=== PATIENT | female | born 1995 | race Caucasian/White ===

== ENCOUNTER 2017-05-07 01:18 | Emergency (ER) | payer BC ==
[~2017-05-07] VITALS: Ht 154.9 cm; Wt 50.0 kg
[2017-05-07] MEDS ORDERED: IBUP-1114 PO (01:47)
[2017-05-07 02:49] LABS: BASO # 0.1 K/mm3 (0.0-0.2); BASO % 0.6 % (0.0-1.0); EOS # 0.1 K/mm3 (0.0-0.50); EOS % 0.7 % (0.0-3.0); LARGE UNSTAINED CELL # 0.2 K/mm3 (0.0-0.4); LARGE UNSTAINED CELL % 2.1 % (0.0-4.0); LYMPH # 2.8 K/mm3 (1.5-6.5); LYMPH % 23.3 % (24.0-44.0); MEAN CORPUSCULAR HEMOGLOBIN 30.9 pg (27.0-33.0); MEAN CORPUSCULAR HGB CONC 34.4 g/dl (32.0-36.5); MEAN CORPUSCULAR VOLUME 89.6 fl (80.0-96.0); MONO # 0.7 K/mm3 (0.0-0.8); MONO % 5.9 % (0.0-5.0); NEUTROPHILS # 7.3 K/mm3 (1.8-7.7); NEUTROPHILS % 67.5 % (36.0-66.0); PLATELET COUNT, AUTOMATED 253 k/mm3 (150-450); RED CELL DISTRIBUTION WIDTH 12.6 % (11.5-14.5); WHITE BLOOD COUNT 10.9 K/mm3 (4.0-10.0)
[2017-05-07 03:04] LABS: CONTROL LINE HCG INT CTR LINE PRESENT
[2017-05-07 03:13] VITALS: BP 114/81
[2017-05-07 03:14] LABS: ANION GAP 8 MEQ/L (8-16); BLOOD UREA NITROGEN 18 MG/DL (7-18); CALCIUM LEVEL 9.1 MG/DL (8.5-10.1); CARBON DIOXIDE LEVEL 27 MEQ/L (21-32); CHLORIDE LEVEL 105 MEQ/L (98-107); CREATININE FOR GFR 0.82 MG/DL (0.55-1.02); GLOMERULAR FILTRATION RATE > 60.0 (>60); GLUCOSE, FASTING 83 MG/DL (70-105); SODIUM LEVEL 140 MEQ/L (136-145); THYROXINE (T4) 8.8 UG/DL (4.5-12.0)
--- NOTE | 2017-05-07 04:52 | REP ---
Clinical: Shortness of breath. Technique: PA and lateral. Findings: Subtle right middle lobe infiltrate/atelectasis cannot be excluded. Mediastinum and cardiac silhouette are normal. No further consolidation, effusion, or pneumothorax. Skeletal structures intact. Impression: Cannot exclude subtle right middle lobe atelectasis/infiltrate. Signed by Guicho Cardona MD 05/07/2017 04:43 A
--- NOTE | 2017-05-07 07:11 | ECGEPIP ---
Stationary ECG Study [facility] - ED Test Date: 2017-05-07 Pat Name: SG BUCKNER Department: Room: - Gender: F [employer] Man: catherine : 1995 Requested By: GUILLERMINA Kulkarni Order Number: [id number] Reading MD: Yinka Vee Measurements Intervals [place] Rate: 71 P: 38 [place]: 116 QRS: 86 QRSD: 78 T: 66 QT: 376 QTc: 410 Interpretive Statements SINUS RHYTHM WITH MARKED SINUS ARRHYTHMIA WITH SHORT [place] INTERVAL NO PRIORS Electronically Signed On 05-07-2017 7:10:58 EDT by Yinka Vee
--- NOTE | 2017-05-07 14:51 | ED PDOC ---
Post-Departure Follow-Up certitied letter sent to pt re formal read of cxr for fu . no pcp listed. Brandon Gonzalez MD May 07, 2017 14:51
== END 2017-05-07 05:13 | disposition home or self-care (01) ==
LOC: M ED 01:18
DX: R07.89 Other chest pain (principal); R55 Syncope and collapse

== ENCOUNTER → 2022-12-31 | Outpatient (CLI) | payer BC ==
[~2022-12-31] MED LIST: IBUP-1114 PO
== END ==
LOC: M WHC 08:32
PROVIDERS: ATTEND Specialist
DX: Z34.82 Encounter for supervision of other normal pregnancy, second trimester (principal); Z53.9 Procedure and treatment not carried out, unspecified reason

== ENCOUNTER → 2023-01-29 | Outpatient (CLI) | payer BC, OTHER | LOC: M PLALAB 14:36 | PROVIDERS: ATTEND Specialist | DX: Z34.82 Encounter for supervision of other normal pregnancy, second trimester (principal) ==

== ENCOUNTER → 2023-06-19 | Outpatient (REF) | payer BC | LOC: M PLALAB 08:25 | PROVIDERS: ATTEND Obstetrics & Gynecology | DX: Z34.80 Encounter for supervision of other normal pregnancy, unspecified trimester (principal) ==

== ENCOUNTER → 2023-06-26 | Outpatient (CLI) | payer BC, OTHER ==
[2023-06-26 13:58] LABS: HEMATOCRIT 41.1 % (36.0-47.0); HEMOGLOBIN 13.4 g/dl (12.0-15.5); MEAN CORPUSCULAR HEMOGLOBIN 28.6 pg (27.0-33.0); MEAN CORPUSCULAR HGB CONC 32.6 g/dl (32.0-36.5); MEAN CORPUSCULAR VOLUME 87.8 fl (80.0-96.0); PLATELET COUNT, AUTOMATED 149 10^3/uL (150-450); RED BLOOD COUNT 4.68 10^6/uL (4.00-5.40); WHITE BLOOD COUNT 11.3 10^3/uL (4.0-10.0)
[2023-06-26 14:27] LABS: URIC ACID 5.9 MG/DL (3.1-7.8)
[2023-06-26 14:28] LABS: LDH LACTATE DEHYDROGENASE 290 U/L (120-246)
[2023-06-26 14:29] LABS: ALT/SGPT 12 U/L (7.0-40); AST/SGOT 18 U/L (<34); BILIRUBIN,TOTAL 0.4 MG/DL (0.3-1.2); CREATININE FOR GFR 0.61 MG/DL (0.55-1.30); GLOMERULAR FILTRATION RATE > 60.0 (>60)
[2023-06-26 14:34] LABS: CREATININE,RANDOM URINE 18.9 MG/DL
[2023-06-26 14:35] LABS: TOTAL PROTEIN,RANDOM URINE < 6.0 MG/DL (0.0-14.0)
== END ==
LOC: M PLALAB 12:16
PROVIDERS: ATTEND Advanced Practice Midwife
DX: O16.3 Unspecified maternal hypertension, third trimester (principal); Z3A.00 Weeks of gestation of pregnancy not specified

== ENCOUNTER 2023-07-03 08:27 | Inpatient (IN) | payer BC, OTHER ==
[~2023-07-03] VITALS: Ht 154.9 cm; Wt 84.6 kg
[2023-07-03] VITALS (21 sets, daily range): BP systolic 119–166; BP diastolic 61–92; O2SAT 97–98
[2023-07-03] MEDS ORDERED: PROZ10CA7 PO (08:53)
[2023-07-03] MEDS ORDERED: MAAL10003 PO (08:53)
[2023-07-03] MEDS ORDERED: PREN1CHW4 PO (08:53)
[2023-07-03] MEDS ORDERED: ASPI81CH33 PO (08:53)
[2023-07-03] MEDS ORDERED: ACET-897 PO (08:53)
[2023-07-03] MEDS ORDERED: HOME MED LIST COMPLETE! XX SCH (08:55)
[2023-07-03 09:47] LABS: HEMATOCRIT 39.7 % (36.0-47.0); HEMOGLOBIN 13.1 g/dl (12.0-15.5); MEAN CORPUSCULAR HEMOGLOBIN 28.5 pg (27.0-33.0); MEAN CORPUSCULAR VOLUME 86.3 fl (80.0-96.0); PLATELET COUNT, AUTOMATED 144 10^3/uL (150-450)
[2023-07-03 10:15] LABS: URIC ACID 6.7 MG/DL (3.1-7.8)
[2023-07-03 10:16] LABS: LDH LACTATE DEHYDROGENASE 226 U/L (120-246)
[2023-07-03 10:17] LABS: ALT/SGPT 15 U/L (7.0-40); AST/SGOT 22 U/L (<34); BILIRUBIN,TOTAL 0.3 MG/DL (0.3-1.2); CREATININE FOR GFR 0.61 MG/DL (0.55-1.30); GLOMERULAR FILTRATION RATE > 60.0 (>60)
[2023-07-03 10:32] LABS: TOTAL PROTEIN,RANDOM URINE < 6.0 MG/DL (0.0-14.0)
[2023-07-03] MEDS ORDERED: METHYLERGONOVINE MALEATE 0.2MG/ML 1ML VIAL IM PRN (11:50)
[2023-07-03] MEDS ORDERED: LIDOCAINE 1% MDV 20ML VIAL INFIL PRN (11:50)
[2023-07-03] MEDS ORDERED: OXYTOCIN DRIP 30 UNITS in IV 1 EA IV PRN (11:50)
[2023-07-03] MEDS ORDERED: CARBOPROST TROMETHAMINE 250 MCG/ML AMP IM PRN (11:50)
[2023-07-03] MEDS ORDERED: TRANEXAMIC ACID INJection 1,000 MG in NS 100 ML IV PRN (11:50)
[2023-07-03] MEDS ORDERED: LACTATED RINGER'S 1000 ML IV STA (11:50)
[2023-07-03] MEDS: LR 1,000 ML IV SCH (19:53)
[2023-07-03] MEDS ORDERED: OXYTOCIN DRIP 30 UNITS in IV 1 EA IV SCH (20:20)
[2023-07-04] VITALS (49 sets, daily range): BP systolic 112–146; BP diastolic 64–99; TEMP 97.2; O2SAT 97–100
[2023-07-04] MEDS: CALCIUM CARBONATE 500 MG CHEW U/D PO PRN ×2 (00:58→07:27)
[2023-07-04] MEDS ORDERED: NALOXONE INJ 0.4MG/1ML VIAL IV PRN ×3 (01:00→17:55)
[2023-07-04] MEDS ORDERED: LR 500 ML IV PRN (01:00)
[2023-07-04] MEDS ORDERED: EPIDURAL/PCA KEYS XX PRN (01:00)
[2023-07-04] MEDS ORDERED: ePHEDrine SULFATE 25 MG/5 ML(5MG/ML) SYRINGE IVP PRN (01:00)
[2023-07-04] MEDS ORDERED: diphenhydrAMINE 50MG/ML VIAL IV PRN ×2 (01:00→17:55)
[2023-07-04] MEDS ORDERED: ONDANSETRON 4MG 2ML VIAL IV PRN ×2 (01:00→17:55)
[2023-07-04] MEDS: FENTANYL/ROPIVACAINE/NACL BAG 100 ML EPIDURAL SCH ×3 (01:05→21:00)
[2023-07-04] MEDS: LR 1,000 ML IV SCH ×5 (03:50→20:20)
[2023-07-04] MEDS ORDERED: FLUO1TAB PO (08:16)
[2023-07-04] MEDS ORDERED: ACETAMINOPHEN 500 MG TAB PO ONE (15:40)
[2023-07-04] MEDS ORDERED: BICITRA 30ML SOLN UDC PO ONE (17:20)
[2023-07-04] MEDS ORDERED: ceFAZolin SOD 2 GM in IV 1 EA IV ONE (17:20)
[2023-07-04] MEDS ORDERED: ONDANSETRON 4MG 2ML VIAL As Ordered ONE (17:43)
[2023-07-04] MEDS ORDERED: MORPHINE PRES-FREE INJ 10 MG/10 ML VIAL As Ordered ONE (17:43)
[2023-07-04] MEDS ORDERED: KETOROLAC 60MG 2ML VIAL As Ordered ONE (17:43)
[2023-07-04] MEDS ORDERED: ACETAMINOPHEN 1000MG 100ML IV BAG As Ordered ONE (17:43)
[2023-07-04] MEDS ORDERED: METOCLOPRAMIDE INJ 10MG/2ML VIAL IV PRN ×2 (17:55)
[2023-07-04] MEDS: SLF 3 ML SYR IV SCH (17:55)
[2023-07-04] MEDS ORDERED: fentaNYL 100 MCG/2 ML INJECTION IV PRN (17:55)
[2023-07-04] MEDS ORDERED: **NOTE PATIENT COMMENT** MISC XX SCH (17:55)
[2023-07-04] MEDS ORDERED: MEPERIDINE 25 MG/ML 1ML VIAL IV PRN (17:55)
[2023-07-04] MEDS ORDERED: oxyCODONE 5MG TAB PO PRN (17:55)
[2023-07-04] MEDS ORDERED: AZITHROMYCIN INJ 500 MG, VIAL MATE ADAPTER 1 EACH in NS 250 ML IV ONE (18:00)
[2023-07-04] MEDS ORDERED: OXYTOCIN 30UNITS IN 0.9% NaCl 500ML IV BAG As Ordered ONE ×3 (18:34→19:33)
[2023-07-04] MEDS ORDERED: ePHEDrine SULFATE 25 MG/5 ML(5MG/ML) SYRINGE As Ordered ONE (18:34)
[2023-07-04] MEDS ORDERED: diphenhydrAMINE 50MG/ML VIAL As Ordered ONE (19:58)
[2023-07-04] MEDS ORDERED: OXYTOCIN DRIP 30 UNITS in IV 1 EA IV SCH (20:20)
[2023-07-04] MEDS ORDERED: RHOGAM 300MCG (1500IU) INJ IM SCH (20:20)
[2023-07-04] MEDS ORDERED: PERCOCET 5MG/325MG TAB PO PRN (20:20)
[2023-07-04] MEDS ORDERED: ACETAMINOPHEN 500 MG TAB PO PRN (20:20)
[2023-07-04] MEDS ORDERED: ANUSOL HC CREAM 30GM TOP PRN (20:20)
[2023-07-04] MEDS ORDERED: PERCOCET PO (20:39)
[2023-07-04] MEDS ORDERED: COLA100C5 PO (20:39)
[2023-07-04] MEDS ORDERED: IBUP80TA PO (20:39)
[2023-07-04] MEDS: DOCUSATE SODIUM 100MG CAPSULE PO SCH (21:00)
[2023-07-05] VITALS (9 sets, daily range): BP systolic 111–136; BP diastolic 61–74; O2SAT 94–99
[2023-07-05] MEDS: KETOROLAC 30 MG/ML 1ML VIAL IV SCH ×3 (00:19→11:37)
[2023-07-05] MEDS: SLF 3 ML SYR IV SCH ×2 (01:55→08:30)
[2023-07-05] MEDS: LR 1,000 ML IV SCH ×2 (03:50→04:20)
[2023-07-05 07:40] LABS: HEMATOCRIT 29.5 % (36.0-47.0); MEAN CORPUSCULAR HEMOGLOBIN 28.9 pg (27.0-33.0); MEAN CORPUSCULAR HGB CONC 32.5 g/dl (32.0-36.5); MEAN CORPUSCULAR VOLUME 88.9 fl (80.0-96.0); PLATELET COUNT, AUTOMATED 107 10^3/uL (150-450); RED BLOOD COUNT 3.32 10^6/uL (4.00-5.40); WHITE BLOOD COUNT 12.7 10^3/uL (4.0-10.0)
[2023-07-05 07:41] LABS: HEMOGLOBIN 9.6 g/dl (12.0-15.5)
[2023-07-05] MEDS: SIMETHICONE 80MG CHEW TAB PO PRN ×2 (08:29→17:24)
[2023-07-05] MEDS: PRENATAL VITAMINS CHEWABLE TABLET PO SCH (08:29)
[2023-07-05] MEDS: DOCUSATE SODIUM 100MG CAPSULE PO SCH ×2 (08:29→21:00)
[2023-07-05] MEDS: PERCOCET 5MG/325MG TAB PO PRN ×2 (08:30→17:24)
[2023-07-05] MEDS ORDERED: MOM 30ML SUSPENSION UDC PO PRN ×2 (19:40→20:15)
[2023-07-05] MEDS: IBUPROFEN 800 MG TAB PO SCH (19:58)
[2023-07-06] MEDS: PERCOCET 5MG/325MG TAB PO PRN ×2 (04:26→12:23)
[2023-07-06] MEDS: IBUPROFEN 800 MG TAB PO SCH ×2 (04:27→12:24)
[2023-07-06] MEDS: SIMETHICONE 80MG CHEW TAB PO PRN (04:27)
[2023-07-06 06:00] VITALS: BP 136/83; O2SAT 98
[2023-07-06] MEDS ORDERED: MEASLES,MUMPS,RUBELLA VACCINE INJ (MMR-II) SC.IMMUN ONE (09:00)
[2023-07-06] MEDS: DOCUSATE SODIUM 100MG CAPSULE PO SCH (09:29)
[2023-07-06] MEDS: PRENATAL VITAMINS CHEWABLE TABLET PO SCH (09:30)
[2023-07-06 09:53] VITALS: BP 122/73; O2SAT 97
[2023-07-06] MEDS ORDERED: IBUP80TA PO (12:00)
[2023-07-06] MEDS ORDERED: PERCOCET PO (12:00)
[2023-07-06] MEDS ORDERED: COLA100C5 PO (12:00)
== END 2023-07-06 16:17 | disposition home or self-care (01) | DRG 540 ==
LOC: M LDO 08:27 → M LDI 11:35 → M OBS 07-04 22:00
PROVIDERS: ADMIT Advanced Practice Midwife; ATTEND Advanced Practice Midwife
PROC: 3E033VJ Introduction of Other Hormone into Peripheral Vein, Percutaneous Approach (ICD-10-PCS; 2023-07-03)
PROC: 0UB70ZZ Excision of Bilateral Fallopian Tubes, Open Approach (ICD-10-PCS; 2023-07-04)
PROC: 10907ZC Drainage of Amniotic Fluid, Therapeutic from Products of Conception, Via Natural or Artificial Opening (ICD-10-PCS; 2023-07-04)
PROC: 10D00Z1 Extraction of Products of Conception, Low, Open Approach (ICD-10-PCS; principal; 2023-07-04 17:19)
DX: O13.4 Gestational [pregnancy-induced] hypertension without significant proteinuria, complicating childbirth (principal); O61.0 Failed medical induction of labor; O34.211 Maternal care for low transverse scar from previous cesarean delivery; Z37.0 Single live birth; Z3A.38 38 weeks gestation of pregnancy; O62.0 Primary inadequate contractions; Z30.2 Encounter for sterilization